=== PATIENT | male | born 1970 ===

== ENCOUNTER 2024-01-04 20:56 | Emergency (ER) | payer OTHER, SELFPAY ==
[2024-01-04 20:58] VITALS: BP 139/88; BMI 27.3
[2024-01-04 22:08] VITALS: BP 132/87
[2024-01-04 22:48] LABS: % Basophils 3.2 % (0-2); % Eosinophils 4.9 % (0-6); % Immature Granulocytes 0.6 % (0-0.5); % Lymphocytes 47.3 % (20.5-51.1); % Monocytes 16.6 % (1.7-9.3); % Neutrophils 27.4 % (42.2-75.2); Absolute Basophils 0.2 10^3/uL (0-0.2); Absolute Eosinophils 0.3 10^3/uL (0-0.7); Absolute Lymphocytes 3.1 10^3/uL (1.2-3.4); Absolute Monocytes 1.1 10^3/uL (0.1-0.6); Absolute Neutrophils 1.8 10^3/uL (1.4-6.5); Hematocrit 43.7 % (39.0-52.0); Hemoglobin 15.6 g/dL (13.0-18.0); Mean Corp Hgb Conc. 35.7 g/dL (33.0-37.0); Mean Corpuscular Hgb 35.3 pg (27.0-31.0); Mean Corpuscular Volume 98.9 fL (80.0-94.0); Mean Platelet Volume 8.9 fL (7.4-10.4); Nucleated Red Blood Cells % 0 % (-); Platelet Count 214 10^3/uL (130-400); Red Blood Cell Count 4.42 10^6/uL (4.70-6.10); Red Cell Dist. Width 13.2 % (11.5-14.5); White Blood Cell Count 6.5 10^3/uL (4.8-10.8)
[2024-01-04 22:58] LABS: INR 1.09
[2024-01-04 22:59] LABS: APTT 34.9 Sec (23.4-35.0)
[2024-01-04 23:07] LABS: Ammonia < 9 umol/L (9-30)
[2024-01-04 23:08] LABS: ALT (SGPT) 29 U/L (0-50); AST (SGOT) 39 U/L (17-59); Albumin 4.6 g/dl (3.5-5.0); Alkaline Phosphatase 269 U/L (38-126); Blood Urea Nitrogen 20 mg/dl (9-20); Calcium 9.2 mg/dl (8.4-10.2); Carbon Dioxide 21 mmol/L (22-30); Chloride 105 mmol/L (98-107); Estimated Creatinine Clearance 66 ml/min; Glucose 92 mg/dl (70-99); Potassium 4.7 mmol/L (3.5-5.1); Sodium 135 mmol/L (135-145); Total Bilirubin 1.5 mg/dl (0.2-1.3); Total Protein 8.6 g/dl (6.3-8.2); eGFR > 60.00
[2024-01-04 23:18] LABS: Alcohol 308 mg/dl
--- NOTE | 2024-01-04 23:42 | ED.GENMED ---
History of Present Illness
General
Chief Complaint: Fall
Source: patient
Exam Limitations: none
Time Seen by Provider: 01/04/24 21:42
Nursing documentation reviewed up to this point in time: agreed with
Travel History
Have you had any contact with someone who has COVID-19?: No
Do you have any symptoms of coronavirus? Fever > 100 degrees, chills, cough, shortness of breath, sore throat, loss of taste or smell, muscle aches, or headache?: No
History of Present Illness
History of Present Illness:
53 y/o M wih ho alcoholic cirrhosis
here after fall today
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
he came home with blood above right eyebrown with lacerations and obvious contusion to face
he reports he had a work injury where a high pressure valve opened forcing him to fall
he claims this is the story
his daughters say that is no way that happened becuase there woul sepidehve been witnesses
they believe he was drinking alcohool
he adamantly denied to me
has some facial pain/swelling
denies vision changes, vomiting, cp, sob, neck pain
tetanus believed to be within 5 years, julissa rojas
Phy Exam
Physical Exam
Physical Exam:
GENERAL: Alert , in no apparent distress smells of alcohol
HEAD: right sided laceration x 2 aboe right eyebrow
larger is 4 cm linear
then above that is a 2.5 cm laceration irregular, stellate
NECK: no midline tenderness, active ROM intact, no paraspinal muscle tenderness;
EYE: pupils equal and reactive, EOMs intact.
ENT: o/p clr, mmm. no hemotympanum
CARDIAC: Regular rate and rhythm, no edema
LUNGS: Clear breath sounds bilaterally, no acute respiratory distress, no wheezes/rales/rhonchi
ABDOMEN: Soft, without focal tenderness, no r/g, no cvat
NEUROLOGICAL: Alert and oriented, no focal neuro deficits, CN intact, 5/5 strength, sensation intact
SKIN: Warm and dry, facial laceration sas above
bruising right eyebrow
bruising left knee/abrasion superficial
MUSCULOSKELETAL: No edema, well perfused.
full rom fo extremities
PSYCH: Normal and appropriate interaction.
Course
Orders/Labs/Results
Orders:
Orders
01/04/24 22:30
CT Head W/o Iv Contrast Urgent
Comment:
Reason For Exam: hit head, cirrhosis confusion
01/04/24 22:36
Alcohol Urgent
Ammonia Urgent
Complete Blood Count/With Diff Urgent
Comprehensive Metabolic Panel Urgent
PTT Urgent
Prothrombin Time Urgent
Abnormal Lab Results
01/04/24
22:36
RBC 4.42 L 10^6/uL
(4.70-6.10)
MCV 98.9 H fL
(80.0-94.0)
MCH 35.3 H pg
(27.0-31.0)
Absolute Monos (auto) 1.1 H 10^3/uL
(0.1-0.6)
Immature Gran % 0.6 H %
(0-0.5)
Neutrophils % 27.4 L %
(42.2-75.2)
Monocytes % 16.6 H %
(1.7-9.3)
Basophils % 3.2 H %
(0-2)
Carbon Dioxide 21 L mmol/L
(22-30)
Total Bilirubin 1.5 H mg/dl
(0.2-1.3)
Alkaline Phosphatase 269 H U/L
(38-126)
Ammonia < 9 L umol/L
(9-30)
Total Protein 8.6 H g/dl
(6.3-8.2)
01/04/24 22:36
01/04/24 22:36
Vital Signs
Initial and Last Documented VS:
Initial Vital Signs
Temp Pulse Resp BP Pulse Ox
98.2 F 75 16 139/88 99
01/04/24 20:58 01/04/24 20:58 01/04/24 20:58 01/04/24 20:58 01/04/24 20:58
Last Documented Vital Signs
Temp Pulse Resp BP Pulse Ox
98.2 F 78 16 114/91 98
01/04/24 20:58 01/05/24 00:43 01/05/24 00:43 01/05/24 00:43 01/05/24 00:43
Procedures
Laceration Closure
Right Forehead:
Size of Wound in cm: 6
Description of Wound Edges: ragged and flap-well vascularized
Preparation: cleaned with saline
Anesthesia: 1% Lidocaine with epi
Revision/Debridement: minor revision and irrigate-direct pressure
Type of Closure: single layer closure
Skin Closure Material: 6-0 prolene
Number of sutures: 19
MDM/Problems Addressed
Differential Diagnosis Includes:
alcohol intoxication, head injury, ICH, concussion, laceration
MDM/Problems Addressed:
53 y/o M with h/o alcohol abuse
says he no longer drinks
cirrhosis
fall today while at work though daughters say there was blood outside the front door to their house an he came home with blood from above his right eye so they think he is lying
on exam pt has STS, contusion, laceration right eyebrow/forehead
no eye pain
no subconjunctival hemorrhage
no lower facial swelling
no neck tendneress
smells of alcohol but is clincally sober, able to walk
neuro intact
given discrepancy in story, chekcing labs, including alcohol level and ammonia
head ct
head ct neg
ammonia normal
etoh 300s
pt sutured, well approximated
d/c home
ambulated steadily
*Critical Care Note
Total Time (30-74mins, 75-104mins- exclusive of procedures): Not Applicable
ED Attending Note
-
Portions of this chart may have been created with voice recognition software.� Occasional wrong word or��sound alike� substitutions may have occurred due to the inherent limitations of voice recognition software.
Discharge Plan
Departure
Patient Disposition: Home (Routine Discharge)
Date of Disposition: 01/05/24
Time of Disposition: 00:20
Patient with high blood pressure during this ER visit?: No
Condition: Fair
Covid-19: Not Applicable
Discharge Problem:
Complex laceration of face, Fall, Alcohol intoxication
Instructions: Head Injury in Adults (DC), Laceration Repair With Stitches (DC), Alcohol Intoxication ED
Referrals:
Darren Livingston MD [Family Provider] - Follow up in 5-7 days
Activity Restrictions/Additional Instructions:
KEEP THE WOUND CLEAN AND DRY FOR 24 HOURS
AFTER THAT YOU CAN GET IT WET IN THE BATH/SHOWER ONCE A DAY AND MAKE SURE IT IS CLEAN AND THERE IS NO DRIED BLOOD ON THE STITCHES
APPLY NEOSPORIN
THE STITCHES NEED TO BE REMOVED IN ABOUT 7 DAYS, SEE YOUR DOCTOR FOR THIS.
WATCH FOR SIGNS OF INFECTION AND RETURN NEEDED FOR PAIN, SWELLING, REDNESS, DRAINAGE, BLEEDING.
MOTRIN NEEDED FOR PAIN.
Your CAT scan did not show any signs of serious head trauma but you could have a minor concussion. You did have alcohol in your bloodstream
. Try to avoid drinking alcohol. We offered you a tetanus shot but you thought your tetanus was up-to-date.
Return to the ER for any concerns like vomiting, confusion, weakness, bleeding, infection. Please ice off-and-on your face, sleep with an extra pillow tonight
Interventions
Interventions:
*Risk Screen - Suicide Last Done: 01/04/24 20:58
*General Assessment Last Done: 01/05/24 00:00
*Neglect/Abuse Screening Last Done: 01/04/24 20:58
ED- Fall Risk Assessment Last Done: 01/05/24 00:00
*ED COVID-19 Vaccine History Last Done: 01/04/24 20:58
*Nursing Disposition Last Done: 01/05/24 00:43
ED-Musculoskeletal Assessment Last Done: 01/04/24 22:09
ED- Neurological Assessment Last Done: 01/04/24 22:59
ED-Skin Assessment Last Done: 01/04/24 22:09
[2024-01-05 00:43] VITALS: BP 114/91
== END 2024-01-05 00:43 | disposition home or self-care (01) ==
LOC: EMR 20:56
PROVIDERS: Physician Assistant; EMERGENCY PHYSICIAN Emergency Medicine; FAMILY PHYSICIAN Family Medicine
DX: S01.81XA Laceration without foreign body of other part of head, initial encounter (principal); W19.XXXA Unspecified fall, initial encounter; F10.129 Alcohol abuse with intoxication, unspecified; Y90.8 Blood alcohol level of 240 mg/100 ml or more; K70.30 Alcoholic cirrhosis of liver without ascites
CPT/HCPCS: 12014; 70450; 80053; 82077; 82140; 85025; 85610; 85730; 99284